=== PATIENT | female | born 1995 | race Two or more races ===

== ENCOUNTER 2016-09-28 12:08 | Emergency (ER) | payer SELFPAY ==
[~2016-09-28] VITALS: Ht 154.9 cm; Wt 59.0 kg
[2016-09-28 12:21] VITALS: BP 125/69
[2016-09-28] MEDS ORDERED: AZITHROMYCIN 250 MG TABLET. PO ONE (12:45)
[2016-09-28] MEDS ORDERED: metroNIDAZOLE 500 MG TABLET PO ONE (12:45)
[2016-09-28] MEDS ORDERED: cefTRIAXone IM 250 MG VIAL IM ONE (12:45)
[2016-09-28 12:56] LABS: BILIRUBIN,URINE NEGATIVE (NEG); GLUCOSE,URINE NEGATIVE (NEG); NITRITE,URINE NEGATIVE (NEG); PROTEIN,URINE NEGATIVE (NEG-TRACE); UROBILINOGEN,URINE 0.2 mg/dL (0.2 mg/dL)
[2016-09-28 13:13] LABS: BACTERIA,URINE FEW /HPF (0-FEW); RBC,URINE 0 /HPF (0-2); SQUAMOUS EPITHELIAL CELL,UR MANY /LPF; WBC,URINE OCC /HPF (0-4)
--- NOTE | 2016-09-28 13:16 | PHYS DOC ---
Past Medical History Past Medical History: No Pertinent History Past Surgical History: No Surgical History Alcohol Use: Occasionally Drug Use: None Adult General Chief Complaint Chief Complaint: SEXUALLY TRANSMITTED DISEASE HPI HPI Patient is a 21 year old female who presents requesting to be tested and treated for STDs. Patient has no symptoms. She states she has a new boyfriend and would like to make sure she does not have any diseases to transfer over to him. Review of Systems Review of Systems Constitutional: Denies fever or chills [] GI: STD check : Denies dysuria or hematuria [] Musculoskeletal: Denies back pain or joint pain [] Integument: Denies rash or skin lesions [] Neurologic: Denies headache, focal weakness or sensory changes [] Endocrine: Denies polyuria or polydipsia [] Current Medications Current Medications Current Medications Medications (Trade) Dose Ordered Sig/Giuseppe Start Time Stop Time Status Last Admin Dose Admin Azithromycin (Zithromax) 1,000 mg 1X ONCE 09/28/16 12:45 09/28/16 13:04 DC 09/28/16 13:14 1,000 MG Ceftriaxone Sodium (Rocephin Im) 250 mg 1X ONCE 09/28/16 12:45 09/28/16 13:04 DC 09/28/16 13:13 250 MG Metronidazole (Flagyl) 2,000 mg 1X ONCE 09/28/16 12:45 09/28/16 13:04 DC 09/28/16 13:14 2,000 MG Allergies Allergies Allergies Coded Allergies Type Severity Reaction Last Updated Verified No Known Drug Allergies 09/28/16 No Physical Exam Physical Exam Constitutional: Well developed, well nourished, no acute distress, non-toxic appearance. [] Abdomen: Bowel sounds normal, soft, no tenderness, no masses, no pulsatile masses. [] Pelvic exam External pelvic appears normal, cervix is closed, no CMT, no adnexal tenderness , small amount of white discharge in the vaginal vault. Skin: Warm, dry, no erythema, no rash. [] Back: No tenderness, no CVA tenderness. [] Extremities: No tenderness, no cyanosis, no clubbing, ROM intact, no edema. [] Neurologic: Alert and oriented X 3, normal motor function, normal sensory function, no focal deficits noted. [] Psychologic: Affect normal, judgement normal, mood normal. [] Current Patient Data Vital Signs Vital Signs Date Time Temp Pulse Resp B/P (MAP) Pulse Ox O2 Delivery O2 Flow Rate FiO2 09/28/16 12:21 98.2 71 18 98 Room Air 98.2 Lab Values Laboratory Tests Test 09/28/16 12:40 Urine Collection Type Unknown Urine Color Yellow Urine Clarity Clear Urine pH 7.0 Urine Specific [place] 1.025 Urine Protein Negative mg/dL (NEG-TRACE) Urine Glucose (UA) Negative mg/dL (NEG) Urine Ketones (Stick) Negative mg/dL (NEG) Urine Blood Negative (NEG) Urine Nitrite Negative (NEG) Urine Bilirubin Negative (NEG) Urine Urobilinogen Dipstick 0.2 mg/dL (0.2 mg/dL) Urine Leukocyte Esterase Small (NEG) Urine RBC 0 /HPF (0-2) Urine WBC Occ /HPF (0-4) Urine Squamous Epithelial Cells Many /LPF Urine Bacteria Few /HPF (0-FEW) Urine Mucus Slight /LPF Microbiology 09/28/16 Wet Prep - Final, Complete EKG EKG [] Radiology/Procedures Radiology/Procedures [] Course & Med Decision Making Course & Med Decision Making Pertinent Labs and Imaging studies reviewed. (See chart for details) This is a 21-year-old female who presents to the ED for STD check and treatment. Wet prep positive for BV and Trichomonas. Patient was given Flagyl Rocephin and azithromycin. Negative urine hCG. Urine appears contaminated. Patient will be discharged with Flagyl to complete bacterial vaginosis treatment. Educated on safe sex practices especially the need to use protection. Dragon Disclaimer Dragon Disclaimer This electronic medical record was generated, in whole or in part, using a voice recognition dictation system. Departure Departure Impression: Primary Impression: Trichomonas vaginitis Additional Impression: Bacterial vaginosis Disposition: HOME, SELF-CARE Condition: STABLE Referrals: NO PCP (PCP) Follow-up with the health Department for STD concerns Patient Instructions: Bacterial Vaginosis, [id number], Trichomoniasis Additional Instructions: You tested positive for Trichomonas, this is a sexually transmitted diseases. We treated you in the emergency room. You also tested positive for bacterial vaginosis. This is not a sexually transmitted diseases. We put you on antibiotics to treat this infection. Ensure you complete them. Contact all your sex partners, let them know you were treated for STDs and ask them to seek treatment too, use protection at all times. Scripts Metronidazole (FLAGYL) 500 Mg Tablet 1 TAB PO BID, #10 TAB Prov: MIN STEIN APRN 09/28/16 Problem Qualifiers MIN STEIN APRN Sep 28, 2016 13:16
[2016-09-28] MEDS ORDERED: METR500T PO (13:25)
== END 2016-09-28 13:35 | disposition home or self-care (01) ==
LOC: ER 12:08
DX: A59.01 Trichomonal vulvovaginitis (principal); N76.0 Acute vaginitis; B96.89 Other specified bacterial agents as the cause of diseases classified elsewhere
CPT/HCPCS: 81001; 81025; 87491; 87591; 96372; 99284; J0696; Q0111; Q0144